=== PATIENT | female | born 1985 | race African-American/Black ===

== ENCOUNTER 2021-05-03 12:18 | Emergency (ER) | payer OTHER ==
[2021-05-03 12:25] VITALS: TEMP 97; BMI 48.1
[2021-05-03 14:29] VITALS: BP 144/93; PULSE 94
[2021-05-03] MEDS ORDERED: IBUPROFEN 400 MG TABLET (FP) PO ONE ×2 (14:41→14:47)
== END 2021-05-03 14:50 | disposition home or self-care (01) ==
LOC: JER 12:18
DX: R07.0 Pain in throat (principal); R03.0 Elevated blood-pressure reading, without diagnosis of hypertension
CPT/HCPCS: 87880; 99283-25; C9803; U0003; U0005